=== PATIENT | male | born 1940 | race Caucasian/White ===

== ENCOUNTER 2022-10-21 07:29 | Day surgery (SDC) | payer MEDICARE ==
[~2022-10-21] VITALS: Ht 182.9 cm; Wt 102.1 kg
[~2022-10-21 07:29] MED LIST: ASPIRIN 81 LOW81 MG PO; FISH OIL1000 M2 PO; LOSARTAN POTASS50 MG PO
[2022-10-21 09:24] VITALS: BP 134/72
== END 2022-10-21 09:47 | disposition home or self-care (01) ==
LOC: ENDO 07:29 → ORM 09:00 → ENDO 09:47 → ORM 09:50
PROVIDERS: ATTEND Internal Medicine Gastroenterology
PROC: 0DBK8ZX Excision of Ascending Colon, Via Natural or Artificial Opening Endoscopic, Diagnostic (ICD-10-PCS; principal; 2022-10-21)
PROC: 0DBE8ZX Excision of Large Intestine, Via Natural or Artificial Opening Endoscopic, Diagnostic (ICD-10-PCS; 2022-10-21)
DX: D12.2 Benign neoplasm of ascending colon (principal); K64.8 Other hemorrhoids; K57.30 Diverticulosis of large intestine without perforation or abscess without bleeding; E78.5 Hyperlipidemia, unspecified; K58.2 Mixed irritable bowel syndrome